=== PATIENT | male | born 1975 | race Caucasian/White ===

== ENCOUNTER 2019-10-17 20:10 | Inpatient (IN) | payer SELFPAY ==
[~2019-10-17] VITALS: Ht 182.9 cm; Wt 99.8 kg
[2019-10-17 21:07] LABS: BASOPHILS 0.1 % (0-2); EOSINOPHILS 0 % (0-7); HEMATOCRIT 39.5 % (42.0-54.0); HEMOGLOBIN 13.7 g/dL (13.5-17.5); IMMATURE GRANULOCYTES 0.2 % (0-5); LYMPHOCYTES 3.9 % (15-50); MCH 30.2 pg (26.0-34.0); MCHC 34.7 g/dL (31.0-37.0); MCV 87.2 fL (80.0-100.0); MEAN PLATELET VOLUME 10.2 fL (7.4-10.4); MONOCYTES 7.8 % (2-11); PLATELET COUNT 164 10x3/uL (130-400); RBC 4.53 10x6/uL (4.20-6.10); RDW 12.3 % (11.5-14.5); WBC 16.5 10x3/uL (4.8-10.8)
[2019-10-17 21:12] LABS: BILIRUBIN NEGATIVE (NEGATIVE); GLUCOSE NEGATIVE (NEGATIVE); KETONE NEGATIVE (NEGATIVE); NITRITE NEGATIVE (NEGATIVE); UROBILINOGEN NORMAL (NORMAL)
[2019-10-17 21:15] LABS: BACTERIA MANY /hpf (NEGATIVE); RED CELLS - URINE 0-5 /hpf (0-5)
[2019-10-17 21:24] LABS: ANION GAP 11.4 mmol/L (8-16); CALCIUM 9.1 mg/dL (8.5-10.1); CARBON DIOXIDE 27.6 mmol/L (21.0-32.0); CREATININE - SERUM 2.8 mg/dL (0.6-1.3)
[2019-10-17 21:30] LABS: BILIRUBIN - TOTAL 0.55 mg/dL (0.2-1.3); PROTEIN - SERUM 7.7 g/dL (6.4-8.2)
[2019-10-17 22:17] VITALS: BP 116/89
--- NOTE | 2019-10-18 00:20 | NUR ---
PATIENT ARRIVED ON FLOOR VIA WHEELCHAIR ACCOMPANIED BY HOSPITAL STAFF AND SIGNIFICANT OTHER. NO S/S OF ACUTE DISTRESS. PATIENT C/O OF PAIN, AND DOCTOR WAS CALLED. PATIENT HAS IV IN THE RIGHT FOREARM NORMAL SALINE @ 100 ML/HR. IV IS PATENT WITHOUT REDNESS, SWELLING, OR TENDERNESS. CALL LIGHT IN PLACE. WILL CONTINUE TO MONITOR.
[2019-10-18 00:45] VITALS: BP 143/85; Ht 182.9 cm; Wt 99.8 kg
--- NOTE | 2019-10-18 01:11 | NUR ---
CALLED HOUSE SUPERCISOR TO COME AND OVERRIDE THE TRAMADOL.
--- NOTE | 2019-10-18 01:59 | NUR ---
I have reviewed this patient and I concur with the Shift Assessment completed by the Licensed Practical Nurse today this shift.
[2019-10-18 04:00] VITALS: BP 146/80
[2019-10-18 06:43] LABS: BASOPHILS 0.1 % (0-2); EOSINOPHILS 0 % (0-7); HEMATOCRIT 38.3 % (42.0-54.0); HEMOGLOBIN 13.1 g/dL (13.5-17.5); IMMATURE GRANULOCYTES 0.2 % (0-5); LYMPHOCYTES 4.2 % (15-50); MCHC 34.2 g/dL (31.0-37.0); MCV 87.6 fL (80.0-100.0); MONOCYTES 7.7 % (2-11); NEUTROPHILS 87.8 % (40-80); PLATELET COUNT 162 10x3/uL (130-400); RBC 4.37 10x6/uL (4.20-6.10); RDW 12.7 % (11.5-14.5); WBC 13.5 10x3/uL (4.8-10.8)
[2019-10-18 07:13] LABS: ALBUMIN 2.7 g/dL (3.4-5.0); ANION GAP 12.6 mmol/L (8-16); BILIRUBIN - TOTAL 0.68 mg/dL (0.2-1.3); CALCIUM 8.7 mg/dL (8.5-10.1); CREATININE - SERUM 3.2 mg/dL (0.6-1.3); POTASSIUM - SERUM 3.6 mmol/L (3.5-5.1); PROTEIN - SERUM 7.1 g/dL (6.4-8.2)
[2019-10-18 08:38] VITALS: BP 154/103
--- NOTE | 2019-10-18 11:37 | NUR ---
BLADDER SCANNED. SHOWED 900+ ML OF URINE IN BLADDER. PATIENT STATES HE WOULD BE MORE COMFORTABLE WITH A MALE DOING IT. CL IN REACH. WCTM
[2019-10-18 12:33] VITALS: BP 149/94
--- NOTE | 2019-10-18 13:54 | NUR ---
1650 REMOVED FROM ANNA.
--- NOTE | 2019-10-18 15:11 | NUR ---
REFUSES SCD'S. GETS UP AND WALKS AROUND.
[2019-10-18 17:07] VITALS: BP 129/87
--- NOTE | 2019-10-18 18:20 | HP ---
PATIENT: EDI ROBERTO MEDICAL RECORD: [id number] ACCOUNT: [id number] LOCATION:[id number] : 73 ADMISSION DATE: 10/17/19 PCP: No PCP HISTORY AND PHYSICAL EXAMINATION DATE OF ADMISSION: 10/17/2019 CHIEF COMPLAINT: Fever, abdominal pain, unable to urinate. HISTORY OF PRESENT ILLNESS: This is a 43-year-old healthy white male who does not have a PCP. He presents complaining of headache, body aches, abdominal pain, fever for about 3 days. He has been unable to urinate very much at all, felt like he was dehydrated, so he has been drinking lots of water and Gatorade, but still unable to urinate. In the ER, his sodium was 127, his BUN 24, creatinine 2.8. White count elevated at 16,000. Influenza tests were negative. Urinalysis showed many bacteria 0-5, 10-25 white blood cells, 0-5 red blood cells, 2+ leukocyte esterase. He is admitted for urinary tract infection, fever, and most likely urinary retention. PAST MEDICAL HISTORY: He denies any past medical history. PAST SURGICAL HISTORY: None. DRUG ALLERGIES: None. HOME MEDICATIONS: No prescription medicine. He may take an Aleve as needed. He has taken Emma-D at times, but nothing recently. HABITS: He denies tobacco, alcohol, or drugs. 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 REVIEW OF SYSTEMS: GENERAL: No major weight changes. HEENT: No particular sinus or allergy problems. RESPIRATORY: No asthma, no COPD. CARDIAC: No chest pain, no known history of heart disease. GASTROINTESTINAL: No diarrhea, constipation, or heartburn. GENITOURINARY: He has had no problem urinating until the last couple of days. MUSCULOSKELETAL: No significant joint aches and pains. PHYSICAL EXAMINATION: VITAL SIGNS: In the ER, his temperature initially was 102.9, heart rate was 121, blood pressure was 149/103 upon presentation to the ER. Currently, temperature 98.1, pulse 97, respirations 20 and blood pressure 154/103, O2 sat 100%. GENERAL: He appears to be comfortable. His significant other is in bed with him as well. SKIN: Warm and dry. HEENT: Grossly within normal limits. NECK: Supple. HEART: Regular rate and rhythm. LUNGS: Fairly clear. ABDOMEN: He is tense in the suprapubic area with some generalized tenderness there. No mass is appreciated. HISTORY AND PHYSICAL [id number] EDI ROBERTO EXTREMITIES: No edema. LABORATORY DATA: This morning, CBC with a white count of 13,500 (down from 16,500 last night), hemoglobin 13.1, hematocrit 38. Sodium 127, BUN 23, creatinine is up to 3.2. Urinalysis last night showed yellow, clear urine, specific gravity 1.010, 1+ protein, 1+ blood, negative nitrite, 2+ leukocyte esterase, 0-5 red blood cells, 10-25 white blood cells, many bacteria, epithelial cells were not mentioned. Urine culture is done. Blood culture is done. ASSESSMENT: 1. Urinary tract infection. 2. Urinary retention. 3. Acute renal insufficiency. 2. Hyponatremia. PLAN: We will continue antibiotics. We will bladder scan this morning and place Shi. Check residual. Follow up results of urine culture. Other tests or procedures as warranted. TRANSINT:[id number] Voice Confirmation ID: [id number] DOCUMENT ID: [id number] JOCE BYNUM MD at 1820 CC: [id number] DICTATION DATE: 10/18/19 1104 PASTA MAKER: 10/18/19 1533 ADM IN [facility] [address] [place] [address]
--- NOTE | 2019-10-18 19:00 | NUR ---
BEDSIDE REPORT RECEIVED AND CARE OF PT ASSUMED. PT LYING IN SUPINE POSITION WITH FAMILY MEMBER AT HIS SIDE. IV TO RIHT FA PATENT WITH NS INFUSING AT 100 ML/HR. WILL MONITOR FOR NEEDS.
[2019-10-18 20:00] VITALS: BP 144/90
[2019-10-19] VITALS: BP 139/88
--- NOTE | 2019-10-19 | NUR ---
EMPTIED OVER 3 L URINE FROM CATHETER SO FAR THIS SHIFT.
[2019-10-19 04:00] VITALS: BP 133/80
[2019-10-19 04:48] LABS: BASOPHILS 0.1 % (0-2); EOSINOPHILS 0.2 % (0-7); HEMOGLOBIN 12.2 g/dL (13.5-17.5); IMMATURE GRANULOCYTES 0.3 % (0-5); LYMPHOCYTES 9.4 % (15-50); MCH 29.6 pg (26.0-34.0); MCHC 33.9 g/dL (31.0-37.0); MCV 87.4 fL (80.0-100.0); MONOCYTES 16.6 % (2-11); NEUTROPHILS 73.4 % (40-80); PLATELET COUNT 182 10x3/uL (130-400); RBC 4.12 10x6/uL (4.20-6.10); RDW 12.9 % (11.5-14.5)
[2019-10-19 04:59] LABS: WBC 8.9 10x3/uL (4.8-10.8)
--- NOTE | 2019-10-19 05:11 | NUR ---
PT HAS HAD 7 LITERS FROM ANNA CATHETER THIS SHIFT.
[2019-10-19 05:27] LABS: ANION GAP 9.3 mmol/L (8-16); CALCIUM 8.2 mg/dL (8.5-10.1); CARBON DIOXIDE 28.6 mmol/L (21.0-32.0); CREATININE - SERUM 1.8 mg/dL (0.6-1.3); POTASSIUM - SERUM 3.9 mmol/L (3.5-5.1)
--- NOTE | 2019-10-19 08:32 | NUR ---
PATIENT AND MARLEY STATES THAT THEY ARE READY TO LEAVE ONE WAY OR ANOTHER. I EXPLAINED THE AMA PROCESS. CL IN REACH. WAITING ON DR. HEMPHILL
[2019-10-19 08:56] VITALS: BP 133/91
--- NOTE | 2019-10-19 10:34 | NUR ---
PATIENT WANTS TO LEAVE TO PAY BILLS. I EXPLAINED TO HIM THAT IF HE LEFT AMA THEN INSURANCE WASN'T GOING TO COVER THE STAY AND THAT DR DOWELL WANTS TO DO A CYSTOSCOPY TOMORROW. HE STATES THAT HE WOULD BE OK IF HE COULD JUST GO PAY HIS BILLS AND COME BACK BY 1700. STATED I WOULD CALL DR BYNUM AND DR DOWELL TO SEE WHAT TO DO ABOUT THE ANNA BECAUSE FAR I KNOW THAT YOU CAN'T LEAVE AND COME BACK WHILE YOU ARE ADMITTED. ASKED WHY MARLEY COULDN'T GO PAY THE BILLS. STATED SHE WASN'T THE . DR DOWELL STATED TO LET HIM GO WITH THE ANNA. WHEN HE CALLED. TO GIVE HIM THE NUMBER FOR HIS OFFICE. DR BYNUM SAID TO LET HIM SIGN AMA FORMS BECAUSE HE HAS STRICTURES AND NEEDS THEM TAKEN CARE OF.
--- NOTE | 2019-10-19 11:35 | NUR ---
IV THERAPY DISCONTINUED FROM RIGHT FOREARM WITH TIP INTACT. WANTED TO KNOW HOW TO REMOVE THE ANNA IF THEY NEEDED TO. EXPLAINED I COULDN'T ANSWER THAT QUESTION THAT DR DOWELL WOULD LIKE TO SEE HIM.
--- NOTE | 2019-10-19 11:37 | NUR ---
SIGNED AMA PAPERWORK AND RODE OUT VIA WHEEL CHAIR.
== END 2019-10-19 11:37 | disposition left against medical advice (07) | DRG 683 ==
LOC: D.ER 20:10 → OBSVTIME 23:24 → D.MS 23:24
PROVIDERS: Emergency Medicine; Family Medicine; ADMIT Family Medicine; ATTEND Family Medicine
DX: N17.9 Acute kidney failure, unspecified (principal); N39.0 Urinary tract infection, site not specified; E87.1 Hypo-osmolality and hyponatremia; N35.919 Unspecified urethral stricture, male, unspecified site